=== PATIENT | female | born 1995 | race Caucasian/White ===

== ENCOUNTER 2018-04-20 19:05 | Outpatient (CLI) | END 2018-04-21 00:59 | disposition home or self-care (01) ==

== ENCOUNTER 2018-04-25 14:40 | Inpatient (IN) | END 2018-04-26 12:45 | disposition home or self-care (01) | DRG 833 ==

== ENCOUNTER 2018-04-28 09:31 | Outpatient (CLI) | END 2018-04-28 11:54 | disposition home or self-care (01) ==

== ENCOUNTER 2018-05-01 06:20 | Inpatient (IN) | END 2018-05-03 14:45 | disposition home or self-care (01) | DRG 807 ==